=== PATIENT | female | born 1990 | race Caucasian/White ===

== ENCOUNTER 2021-03-11 10:37 | Emergency (ER) | payer OTHER ==
[~2021-03-11] VITALS: Ht 167.6 cm; Wt 72.6 kg
[2021-03-11 11:09] LABS: ABSOLUTE BASOPHILS 0.1 thou/uL (0.0-0.2); ABSOLUTE LYMPHOCYTES 1.8 thou/uL (0.8-5.3); ABSOLUTE MONOCYTES 0.9 thou/uL (0.0-1.2); ABSOLUTE NEUTROPHILS 8.4 thou/uL (1.6-8.1); BASOPHILS 0.6 %; EOSINOPHILS 0.2 %; HEMATOCRIT 36.3 % (37.0-47.0); HEMOGLOBIN 12.4 gm/dL (12.0-15.0); LYMPHOCYTES 15.9 %; MCH 29.2 pg (26.0-34.0); MCHC 34.2 g/dL (28.0-37.0); MCV 85.4 fL (80.0-100.0); MPV 7.6 fl. (7.2-11.1); NUCLEATED RBCS 0 /100WBC; PLATELET COUNT* 252 thou/uL (150-400); POLYS 75.3 %; RBC 4.25 mil/uL (4.20-5.00); RDW-CV 12.9 % (10.5-14.5); WBC 11.1 thou/uL (4.0-11.0)
[2021-03-11 11:20] LABS: CALCIUM 8.2 mg/dL (8.5-10.1); CREATININE 0.7 mg/dL (0.6-1.3); POTASSIUM 3.4 mmol/L (3.5-5.1)
[2021-03-11 11:23] LABS: URINE BILIRUBIN NEGATIVE (Negative); URINE BLOOD TRACE (Negative); URINE CLARITY CLEAR; URINE COLOR YELLOW; URINE GLUCOSE-RANDOM NEGATIVE (Negative); URINE KETONES NEGATIVE (Negative); URINE LEUKOCYTES-REFLEX NEGATIVE (Negative); URINE NITRITE-REFLEX NEGATIVE (Negative); URINE PROTEIN NEGATIVE (Negative); URINE SPECIFIC GRAVITY >= 1.030 (1.005-1.030); URINE UROBILINOGEN 0.2 E.U./dl (0.2-1.0)
[2021-03-11 11:30] LABS: ALBUMIN 3.8 g/dL (3.4-5.0); MAGNESIUM 1.5 mg/dL (1.8-2.4); TOTAL BILIRUBIN 0.2 mg/dL (<0.1-1.0); TOTAL PROTEIN 7.5 g/dL (6.4-8.2)
[2021-03-11 11:30] LABS: AMP/METHAMP Negative (Negative); BARBITURATES Negative (Negative); BENZODIAZEPINES Negative (Negative); COCAINE Negative (Negative); METHADONE Negative (Negative); OPIATES POSITIVE (Negative); PCP POSITIVE (Negative); THC POSITIVE (Negative)
[2021-03-11 11:33] LABS: SALICYLATE < 2.8 mg/dL (2.8-20.0)
[2021-03-11 11:34] LABS: ACETAMINOPHEN < 2 ug/mL (10-30); ALCOHOL < 10 mg/dL (<10)
[2021-03-11 13:17] VITALS: BP 137/80
--- NOTE | 2021-03-13 13:47 | EKG ---
[place] [address] ELECTROCARDIOGRAM REPORT Name: SONAL LUCAS Room: [facility]#: [id number] Admission: 03/11/21 Attend Phys: Discharge: 03/11/21 Date of : 88 Date of Service: 03/11/21 1041 Report #: [id number] THIS REPORT FOR: //name// [facility] ED Test Date: 2021-03-11 Test Time: 10:41:27 Pat Name: SONAL LUCAS Department: Room: Gender: Manager [employer]: [facility] : 1990 Requested By: Liang Thompson Order Number: [id number] MD: Abraham Crockett Measurements Intervals [place] Rate: 135 P: -25 [place]: 135 QRS: 42 QRSD: 97 T: 48 QT: 408 QTc: 612 Interpretive Statements Sinus tachycardia Probable left atrial enlargement Prolonged QT interval No previous ECG available for comparison Electronically Signed On 03-13-2021 13:47:32 CDT by Abraham Crockett [email or web address] <ELECTRONICALLY SIGNED> By: Abraham Crockett MD, [facility] 03/13/21 1347 1041 1041 Abraham Crockett MD, FAC /EPI
== END 2021-03-11 13:17 | disposition left against medical advice (07) ==
LOC: M.ERS 10:37
PROVIDERS: Emergency Medicine Emergency Medical Services
DX: T50.991A Poisoning by other drugs, medicaments and biological substances, accidental (unintentional), initial encounter (principal); E83.42 Hypomagnesemia; I45.81 Long QT syndrome; F41.9 Anxiety disorder, unspecified; Y92.89 Other specified places as the place of occurrence of the external cause